=== PATIENT | female | born 1970 | race Caucasian/White ===

== ENCOUNTER 2017-09-07 13:49 | Emergency (ER) | payer MEDICARE, MEDICAID ==
[~2017-09-07] VITALS: Ht 162.6 cm; Wt 90.5 kg
[~2017-09-07 13:49] MED LIST: FLUO20CA46 PO; HYDR-3686 PO; IBUP-1984 PO; LITH150C8 PO; NICO-687 TD; OLAN10TA19 PO; SULF1TAB49 PO
[2017-09-07] MEDS: HYDROcodone/acetaminophen 5mg/325mg tablet PO ONE (16:45)
[2017-09-07] MEDS: ketorolac trometh. 30mg/ml inj. IM ONE (16:45)
[2017-09-07 18:01] VITALS: BP 139/97
== END 2017-09-07 18:02 | disposition home or self-care (01) ==
LOC: ER 13:49
DX: Z48.00 Encounter for change or removal of nonsurgical wound dressing (principal); S50.12XA Contusion of left forearm, initial encounter; S80.12XA Contusion of left lower leg, initial encounter; S80.11XA Contusion of right lower leg, initial encounter; S30.1XXA Contusion of abdominal wall, initial encounter; F12.10 Cannabis abuse, uncomplicated; F15.10 Other stimulant abuse, uncomplicated; Z86.14 Personal history of Methicillin resistant Staphylococcus aureus infection; Z79.899 Other long term (current) drug therapy; Z88.0 Allergy status to penicillin; Z88.5 Allergy status to narcotic agent; Z88.8 Allergy status to other drugs, medicaments and biological substances; Y08.89XA Assault by other specified means, initial encounter; Y93.89 Activity, other specified; Y92.89 Other specified places as the place of occurrence of the external cause; Y99.8 Other external cause status
CPT/HCPCS: 96372; 99283; A6266; J1885

== ENCOUNTER 2017-11-09 19:56 | Emergency (ER) | payer MEDICARE, MEDICAID ==
[~2017-11-09] VITALS: Ht 157.5 cm; Wt 88.8 kg
[~2017-11-09 19:56] MED LIST changes: +ACET-2119 PO; +FLUO20CA39 PO; -FLUO20CA46 PO; +GABA-530 PO; -HYDR-3686 PO; -IBUP-1984 PO; -LITH150C8 PO; +LORA1TAB PO; -NICO-687 TD; -OLAN10TA19 PO; +OLAN2.5T3 PO; -SULF1TAB49 PO; +TRAM50TA2 PO
[2017-11-09 22:55] LABS: ALANINE AMINOTRANSFERASE 32 U/L (12-78); ALBUMIN 3.5 G/DL (3.4-5.0); ALBUMIN/GLOBULIN RATIO 0.9 (1.1-1.5); ALKALINE PHOSPHATASE 72 IU/L (46-116); ANION GAP 12 (8-16); ASPARTATE AMINO TRANSFERASE 17 U/L (10-37); BILIRUBIN,TOTAL 0.2 MG/DL (0.1-1.0); BLOOD UREA NITROGEN 16 MG/DL (7-18); CALCIUM 8.6 MG/DL (8.5-10.1); CHLORIDE 105 MMOL/L (99-107); CREATININE 0.84 MG/DL (0.40-0.90); ETHANOL < 0.010 GM/DL (0.0-0.010); GLUCOSE 112 MG/DL (70-104); POTASSIUM 3.7 MMOL/L (3.5-5.1); SODIUM 143 MMOL/L (135-145); TOTAL CARBON DIOXIDE 26.3 MMOL/L (24-32); TOTAL PROTEIN 7.2 G/DL (6.4-8.2); eGFR 73 ML/MIN
[2017-11-09 22:56] LABS: BASOPHILS % (AUTO) 0.5 % (0-1); EOSINOPHILS # (AUTO) 0.2 X10'3 (0-0.9); EOSINOPHILS % (AUTO) 2.3 % (0-6); HEMOGLOBIN 13.1 g/dl (12.0-16.0); LYMPHOCYTES # (AUTO) 1.6 X10'3 (1.1-4.8); LYMPHOCYTES % (AUTO) 22.5 % (21-51); MEAN CORPUSCULAR HEMOGLOBIN 30.1 PG (27.0-31.0); MEAN CORPUSCULAR HGB CONC 34.3 % (33.0-36.5); MEAN CORPUSCULAR VOLUME 87.9 FL (78-98); MEAN PLATELET VOLUME 9.1 FL (7.4-10.4); MONOCYTES # (AUTO) 0.3 X10'3 (0-0.9); MONOCYTES % (AUTO) 4.4 % (2-12); NEUTROPHILS # (AUTO) 5.2 X10'3 (1.8-7.7); NEUTROPHILS % (AUTO) 70.3 % (42-75); PLATELET COUNT 262 X10'3 (140-440); RED BLOOD COUNT 4.33 X10'6 (4.20-5.60); RED CELL DISTRIBUTION WIDTH 14.7 % (11.5-14.5); WHITE BLOOD COUNT 7.3 X10'3 (4.5-11.0)
[2017-11-09 23:02] LABS: ACETAMINOPHEN < 2.0 UG/ML (10-30)
[2017-11-09 23:03] LABS: URINE HCG NEGATIVE (NEG)
[2017-11-09 23:14] LABS: URINE AMPHETAMINE SCREEN POSITIVE (Neg); URINE BARBITUATE SCREEN NEGATIVE (Neg); URINE BENZODIAZEPINES SCREEN NEGATIVE (Neg); URINE CANNABINOID SCREEN POSITIVE (Neg); URINE COCAINE SCREEN NEGATIVE (Neg); URINE METHADONE SCREEN NEGATIVE (Neg); URINE OPIATE SCREEN NEGATIVE (Neg); URINE PHENCYCLIDINE SCREEN NEGATIVE (Neg)
[2017-11-10 00:24] VITALS: BP 138/96
== END 2017-11-10 00:27 ==
LOC: ER 19:57
DX: F41.9 Anxiety disorder, unspecified (principal); F32.9 Major depressive disorder, single episode, unspecified; F12.10 Cannabis abuse, uncomplicated; F15.10 Other stimulant abuse, uncomplicated; Z86.14 Personal history of Methicillin resistant Staphylococcus aureus infection; Z56.0 Unemployment, unspecified; Z88.0 Allergy status to penicillin; Z88.5 Allergy status to narcotic agent; Z88.8 Allergy status to other drugs, medicaments and biological substances; Z79.899 Other long term (current) drug therapy
CPT/HCPCS: 36415; 80053; 80305; 80320; 80329; 81025; 85025; 99284; 99285; A4310

== ENCOUNTER → 2022-10-31 | Emergency (ER) | payer MEDICARE, MEDICAID ==
[~2022-10-31] VITALS: Ht 157.5 cm; Wt 93.0 kg
[~2022-10-31] MED LIST changes: -ACET-2119 PO; -GABA-530 PO; -LORA1TAB PO; -OLAN2.5T3 PO; +OLAN5TAB3 PO; -TRAM50TA2 PO
[2022-10-31 10:56] VITALS: BP 118/72
--- NOTE | 2022-10-31 12:02 | NUR ---
marino swabbed pt and took it to lab.
== END | disposition left against medical advice (07) ==
LOC: ER 10:52
DX: R45.851 Suicidal ideations (principal); Z20.822 Contact with and (suspected) exposure to COVID-19; F31.9 Bipolar disorder, unspecified; F12.10 Cannabis abuse, uncomplicated; F15.10 Other stimulant abuse, uncomplicated; Z88.0 Allergy status to penicillin; Z88.8 Allergy status to other drugs, medicaments and biological substances; Z88.5 Allergy status to narcotic agent; Z79.899 Other long term (current) drug therapy
CPT/HCPCS: 87811; 99285

== ENCOUNTER 2023-10-09 23:32 | Emergency (ER) | payer MEDICARE, MEDICAID ==
[~2023-10-09] VITALS: Ht 157.5 cm; Wt 90.6 kg
[2023-10-10 00:59] VITALS: BP 126/70; PULSE 89; RESP 18; TEMP 98; O2SAT 97
[2023-10-10] MEDS ORDERED: gabapentin 400mg capsule PO ONE (01:15)
[2023-10-10] MEDS ORDERED: gabapentin 400mg capsule PO SCH (01:15)
[2023-10-10] MEDS ORDERED: GABA-530 PO (01:18)
== END 2023-10-10 01:30 | disposition home or self-care (01) ==
LOC: ER 23:33
DX: G25.81 Restless legs syndrome (principal); F19.10 Other psychoactive substance abuse, uncomplicated; F41.9 Anxiety disorder, unspecified; F32.A Depression, unspecified; Z72.89 Other problems related to lifestyle; F15.90 Other stimulant use, unspecified, uncomplicated; F12.90 Cannabis use, unspecified, uncomplicated; Z56.0 Unemployment, unspecified; Z88.0 Allergy status to penicillin; Z79.899 Other long term (current) drug therapy
CPT/HCPCS: 99283